=== PATIENT | female | born 1930 | race Caucasian/White ===

== ENCOUNTER 2018-10-12 06:33 | Day surgery (SDC) | payer MEDICARE, OTHER ==
[~2018-10-12] VITALS: Ht 152.4 cm; Wt 54.3 kg
[2018-10-12] MEDS ORDERED: LIDOCAINE 2% (SDV) 5 ML INJ ONE (07:00)
[2018-10-12 07:23] VITALS: Ht 152.4 cm; Wt 54.3 kg
[2018-10-12] MEDS ORDERED: COD30 GTB (07:43)
[2018-10-12] MEDS ORDERED: PRED5TAB PO (07:43)
[2018-10-12] MEDS ORDERED: OMEP20CA16 PO (07:43)
[2018-10-12] MEDS ORDERED: DICL100G37 TOP (07:43)
[2018-10-12] MEDS ORDERED: LEVO50TA7 PO (07:43)
[2018-10-12] MEDS ORDERED: ASPI-903 PO (07:43)
[2018-10-12] MEDS ORDERED: [UNRECOGNIZED DRUG - CODE] (07:43)
[2018-10-12] MEDS ORDERED: VIT D (07:43)
[2018-10-12] MEDS ORDERED: LYRI100 PO (07:43)
[2018-10-12] MEDS ORDERED: AMLO-147 PO (07:43)
[2018-10-12] MEDS ORDERED: SIMV5TAB14 PO (07:43)
[2018-10-12] MEDS ORDERED: CITRACAL PO (07:43)
[2018-10-12] MEDS ORDERED: DENO60DI SQ (07:43)
[2018-10-12 07:52] VITALS: BP 144/66; PULSE 97; RESP 16
--- NOTE | 2018-10-12 08:06 | PREAC ---
Date/Time of Note Date/Time of Note DATE: 10/12/18 TIME: 08:05 Anesthesia Eval and Record Evaluation Time Pre-Procedure Interview DATE: 10/12/18 TIME: 08:05 Age 88 Sex female NPO: 8 hrs Preoperative diagnosis abd pain Planned procedure colonoscopy Past Medical History Past Medical History: Includes Cardio: HTN, Dyslipidemia Endo: Diabetes, Hypothyroid Heme: Anemia Surgery & Anesthesia Issues No known issue Meds Anticoagulation: No Beta Fran within 24 hr: No Reason Beta Fran not given: Pt. not on B-Fran Reported Medications Levothyroxine Sodium* (Levothyroxine Sodium*) 50 Mcg Tablet, 50 MCG PO BEFORE BREAKFAST, #30 TAB 10/12/18 Calcium Citrate* (Citracal*) 950 Mg Tab, 315 MG PO DAILY, TAB 10/12/18 [Vit.b12] No Conflict Check 10/12/18 [Vit D3 2000U] No Conflict Check 10/12/18 Aspirin* (Aspirin* Chew) 81 Mg Tab.chew, 81 MG PO DAILY, TAB.CHEW 10/12/18 Codeine (CODEINE SULFATE) 30 Mg Tab, 30 MG GTB, TAB 10/12/18 Omeprazole* (Omeprazole*) 20 Mg Capsule.dr, 20 MG PO DAILY, #30 CAP 10/12/18 Diclofenac Sodium* (Voltaren* Gel) 1% -100 Gm Gel, 4 GM TOP QID, #1 TUB 10/12/18 Prednisone* (Prednisone*) 5 Mg Tab, 5 MG PO BID, TAB 10/12/18 Denosumab (Prolia) 60 Mg/1 Ml Disp.syrin, 60 MG SQ 10/12/18 Pregabalin* (Lyrica*) 100 Mg Capsule, 100 MG PO PRN, CAP 10/12/18 Simvastatin* (Simvastatin*) 5 Mg Tablet, 20 MG PO QHS, #30 TAB 10/12/18 Amlodipine Besylate* (Amlodipine Besylate*) 10 Mg Tablet, 10 MG PO DAILY, #30 TAB 10/12/18 Meds reviewed: Yes Allergies Coded Allergies: No Known Drug Allergies (Verified Allergy, Unknown, 10/12/18) Allergies Reviewed: Yes Labs/Studies Labs Reviewed: Reviewed by anesthesiologist test: Negative Studies: ECG Pre-procedure Exam Last vitals Vital Signs Date Temp Pulse Resp B/P (MAP) Pulse Ox O2 O2 Flow FiO2 Time Delivery Rate 10/12/18 96.6 97 16 144/66 96 Room Air 07:52 (92) Airway: Adequate mouth opening, Adequate thyromental dist Mallampati: Mallampati II Teeth: Normal Lung: Normal Heart: Normal ASA Physical Status ASA physical status: 3 Emergency: None Planned Anesthetic General/MAC: Mask Pre-operative Attestations Prior to commencing anesthesia and surgery, the patient was re-evaluated, there was verification of: *The patient's identity *The results of appropriate recent lab work and preoperative vital signs *The above evaluation not changing prior to induction *Anesthetic plan, risk benefits, alternative and complications discussed with patient/family; questions answered; patient/family understands, accepts and wishes to proceed. COCO VERDE Oct 12, 2018 08:06
[2018-10-12] MEDS ORDERED: PROPOFOL 20 ML ONE (08:09)
[2018-10-12] MEDS ORDERED: FENTAnyl 50 MCG/ML VIAL IV PRN ×2 (08:30)
[2018-10-12 09:28] VITALS: BP 127/61; RESP 20
--- NOTE | 2018-10-12 10:17 | PAC ---
Date/Time of Note Date/Time of Note DATE: 10/12/18 TIME: 10:17 Post-Anesthesia Notes Post-Anesthesia Note Last documented vital signs Vital Signs Date Temp Pulse Resp B/P (MAP) Pulse Ox O2 O2 Flow FiO2 Time Delivery Rate 10/12/18 20 127/61 95 09:28 (83) 10/12/18 96.6 97 Room Air 07:52 Activity: WNL Respiratory function: WNL Cardiovascular function: WNL Mental status: Baseline Pain reasonably controlled: Yes Hydration appropriate: Yes Nausea/Vomiting absent: Yes COCO VERDE Oct 12, 2018 10:17
== END 2018-10-12 15:00 | disposition home or self-care (01) ==
LOC: GIL 06:33
PROVIDERS: ATTEND Internal Medicine Gastroenterology
DX: K92.1 Melena (principal); D12.3 Benign neoplasm of transverse colon; K64.8 Other hemorrhoids; K57.30 Diverticulosis of large intestine without perforation or abscess without bleeding; E11.9 Type 2 diabetes mellitus without complications; E78.5 Hyperlipidemia, unspecified; E03.9 Hypothyroidism, unspecified; I10 Essential (primary) hypertension
CPT/HCPCS: 82962; 88305